=== PATIENT | male | born 1990 | race African-American/Black ===

== ENCOUNTER 2016-04-16 22:56 | Emergency (ER) ==
[2016-04-16 23:02] VITALS: BP 150/91
[2016-04-16] MEDS ORDERED: XYLOCAINE-MPF 1% INJ ONE (23:45)
[2016-04-16] MEDS ORDERED: ROCEPHIN IM ONE (23:45)
--- NOTE | 2016-04-16 23:50 | PROVIDER DOCUMENTATION ---
HPI-Male Problem <Jovi Pena - Last Filed: 04/16/16 23:46> - General Source: patient - History of Present Illness-Male Location of Complaint: reports: urethral (tingling) Quality of Pain: reports: other (tingling) Severity in ED: reports: mild Onset/Duration: reports: unsure Timing: reports: still present Sexual intercourse history: reports: Less Than 2 Months Ago, Single Partner Contraception: reports: none Associated Symptoms: reports: penile pain/swelling. denies: penile discharge <Bk Menendez - Last Filed: 04/17/16 00:07> - General Chief Complaint: General Adult Stated Complaint: SWELLING Time Seen by Provider: 04/16/16 23:39 Allergies/Adverse Reactions: Patient Allergies Allergy/AdvReac Type Severity Reaction Status Date / Time No Known Allergies Allergy Verified 04/16/16 23:07 - History of Present Illness-Male Nature of Presenting Problem: Pt is a 25 yom who presents to ER with CC of exposure to a STD. Pt reports he has been having unprotected sex with his girlfriend who is being treated for chlamydia. Pt reports a tingling sensation in his penis, but denies discharge. Pt also reports that his 2nd premolar upper right tooth has been chipped for months and is causing him pain. (Bk Menendez) Review of Systems - Adult - REVIEW OF SYSTEMS - ADULT Constitutional: denies: chills, fever, fatique Eyes: reports: no symptoms reported Ears, Nose, Mouth & Throat: reports: no symptoms reported Cardiovascular: reports: no symptoms reported Respiratory: reports: no symptoms reported Gastrointestinal: reports: no symptoms reported Genitourinary: reports: other (tingling sensation in penis). denies: dysuria, discharge, frequency, hematuria, incontinence, urinary retention, urgency Musculoskeletal: reports: no symptoms reported Integumentary: reports: no symptoms reported Neurological: reports: no symptoms reported Psychiatric: reports: no symptoms reported Endocrine: reports: no symptoms reported Hematologic/Lymphatic: reports: no symptoms reported Allergic/Immunologic: reports: no symptoms reported All Other Systems: Reviewed and Negative <Bk Menendez - Last Filed: 04/17/16 00:07> Past History - Adult - PAST MEDICAL HISTORY-ADULT Review of Records: reports: Nursing Assessment Review, Medications Reviewed - IMMUNIZATION STATUS Childhood Immunizations: See Nurse Assessment Flu Vaccine: See Nurse Assessment <Bk Menendez - Last Filed: 04/17/16 00:07> Physical Exam-General - PHYSICAL EXAM-ADULT Initial Vital Signs Reviewed: Yes - CONSTITUTIONAL General Appearance: appears well, alert, mild distress - HEAD, EARS, NOSE, MOUTH & THROAT HENMT: moist mucous membranes, dental decay (2nd premolar upper right tooth is chipped) - NECK Neck: non-tender, full range of motion, supple - RESPIRATORY Respiratory: chest non-tender, lungs clear, normal breath sounds - CARDIOVASCULAR Cardiovascular: normal peripheral pulses, regular rate, rhythm - GASTROINTESTINAL (ABDOMEN) Abdominal Exam: normal bowel sounds, non tender, soft - LYMPHATIC Lymphatic: no adenopathy - MUSCULOSKELETAL Back Exam: no CVA tenderness, no vertebral tenderness Extremity: normal range of motion, non-tender, normal gait - SKIN Integumentary: normal color, normal turgor, warm/dry - NEUROLOGIC Neurologic: grossly normal, no motor/sensory deficits - PSYCHIATRIC Psych/Mental Status: normal mood/affect, normal thought content, normal thought process, oriented x 3 <Bk Menendez - Last Filed: 04/17/16 00:07> Progress <Jovi Pena - Last Filed: 04/16/16 23:46> <Bk Menendez - Last Filed: 04/17/16 00:07> - PLAN OF CARE/RESULTS Progress/Plan/Lab Results: Vital Signs - 24 hr 04/16/16 22:59 Temperature 98.2 F Pulse Rate 91 H Respiratory 16 Rate Blood Pressure 150/91 O2 Sat by Pulse 99 Oximetry Orders Category Date Time Status CefTRIAXONE [Rocephin] Med 04/16/16 23:45 Discontinued 1 gm IM NOW ONE Lidocaine 1% Pf [Xylocaine-Mpf 1%] Med 04/16/16 23:45 Discontinued 5 ml INJ NOW ONE (Bk Menendez) Departure - Departure Time of Disposition Order: 23:47 Certified Medical Emergency: Emergent <Jovi Pena - Last Filed: 04/16/16 23:46> - Departure Time of Disposition Order: 00:06 Certified Medical Emergency: Emergent <Bk Menendez - Last Filed: 04/17/16 00:07> - Departure DIAGNOSIS: Pain, dental, Exposure to STD Disposition: HOME 01 Condition: Stable Additional Instructions: FOLLOW UP WITH DENTIST. FOLLOW UP WITH [facility] FOR FULL STD EVALUATION. ED Follow Up Instructions: You have been treated by a care provider in the Emergency Department. These instructions are being provided to you so you can have an understanding of how to care for yourself upon discharge. Upon discharge from the Emergency Department, you are responsible for making arrangements for follow-up care by a physician of your choice. Take all prescribed medications as directed. Return to the Emergency Department immediately for any new or worsening symptoms. You may call the Physician Referral phone number at [phone] to obtain a list of Physicians who are taking new patients. Prescriptions: Metronidazole [Flagyl] 500 mg PO BID #20 tablet Ibuprofen [Motrin] 800 mg PO Q8H PRN PRN #20 tablet PRN Reason: inflammation Omeprazole [Prilosec] 20 mg PO DAILY@0700 #20 capsule Azithromycin [Zithromax Z-Gaston] 250 mg PO DIRECTED #1 pkg Referrals: None,PCP [Primary Care Provider] - Instructions: Dental Pain, Sexually Transmitted Disease, [id number] Attestation - Physician/ Mid-level Attestation Patient care was provided by Mid-level provider (BULK MAIL CLERK/PA):: Yes Mid-level provider:: Jovi Pena Mid-level documentation review:: The Mid-level provider documentation, treatment plan and medical decision making was reviewed by the physician who agrees with all treatment and medical decision making by the [facility]. <Jovi Pena - Last Filed: 04/16/16 23:46> - Scribe Verification/Attestation Scribe:: Bk Menendez Acting as Scribe for:: Jovi Pena Scribe documention review:: This chart was documented by a scribe and accurately reflects the service the provider performed and the decisions made by the provider. <Bk Menendez - Last Filed: 04/17/16 00:07> Physician Attestation
== END 2016-04-17 00:21 | disposition home or self-care (01) ==
LOC: ED 22:56
DX: K08.89 Other specified disorders of teeth and supporting structures (principal); R20.2 Paresthesia of skin; S02.5XXA Fracture of tooth (traumatic), initial encounter for closed fracture; K02.9 Dental caries, unspecified; Z20.2 Contact with and (suspected) exposure to infections with a predominantly sexual mode of transmission
CPT/HCPCS: 96372; J0696